=== PATIENT | male | born 1955 | race Caucasian/White ===

== ENCOUNTER 2017-11-28 12:40 | Emergency (ER) | payer SELFPAY ==
[2017-11-28 12:49] VITALS: BP 131/81; BMI 32.3
--- NOTE | 2017-11-28 13:26 | DR.ABDMALE ---
HPI - Time seen Time seen: 13:20 - PCP Primary Care Physician: Vargas DUEÑAS - Complaint Chief Complaint Doctors Comments: Patient presents to the ED with complaint of abdominal distention for the past 2-3 that is associated with anterior lateral pain abdomen. Chief Complaint:: PT C/O HIS BELLY SWELLING AND THAT HE HIS BELCHING, PT C/O THAT HIS ABD PAIN WAS WORSE THIS AM AND THAT WALKING MAKES IT BETTER,, PT C/O SOB WHEN HE WALKS,, Self Treatment fo Chief Complaint: PTS HAS SWELLING TO HIS ABD ,,, AND HE SAYS HE PUT HIS ARMS ACROSS HIS CHEST AND HE FELT SOMETHING POP,, ABOUT 6 MONTHS AGO AND HE HAD HURT SINCE THAN ,, - Mode of arrival Mode of Arrival: Ambulatory - Timing Onset of Chief Complaint: 11/28/17 PMH - PMH Past Medical History: Yes Past Medical History: Hypertension, SVT Past Surgical History: Yes Past Surgical History Comment: KNEE REPLACED, HERNIA, ARTERY FROM HEART, - Family History History of Family Medical Conditions: No - Social History Does patient currently use any type of tobacco product: No Have you used tobacco products in the last 12 months: No Type of Tobacco Use: None Does any household member use tobacco: No Alcohol Use: None Do you use any recreational Drugs:: No Lives With: Family Lives Where: Home - infectious screening In the last 2 months have you had wt loss of >10#?: NO Have you had fever, night sweats or hemotysis?: No Have you traveled outside the country in the last 6 months?: No Isolation: Standard ROS - Review of Systems Eyes: No Symptoms Reported ENTM: No Symptoms Reported Respiratoy: No Symptoms Reported Cardiovascular: No Symptoms Reported Gastrointestinal/Abdominal: No Symptoms Reported, See HPI, Abdominal Pain, Diarrhea. negative: Constipation, Vomiting Genitourinary: No Symptoms Reported Neurological: No Symptoms Reported Musculoskeletal: No Symptoms Reported Integumentary: No Symptoms Reported Hematologic/Lymphatic: No Symptoms Reported Endocrine: No Symptoms Reported Psychiatric: No Symptoms Reported All Other Systems: Reviewed and Negative PE - Vital Signs Vital Signs: Temp Pulse Resp BP Pulse Ox 11/28/17 12:42 97.5 F L 93 H 20 131/81 110 H - General Limitations: No Limitations General Appearance: Alert, In No Apparent Distress - Head Head Exam: Normal Inspection, Atraumatic - Eyes Eye exam: Normal Appearance, PERRL, EOMI - ENT ENT Exam: Normal Exam - Neck Neck Exam: Normal Inspection, Full ROM - Chest Chest Inspection: Normal Inspection - Respiratory Respiratory Exam: Normal Lung Sounds Bilat Respiratory Exam: Bilateral Clear to Auscultation - Cardiovascular Cardiovascular Exam: Regular Rate, Normal Rhythm - Abdominal Exam Abdominal Exam: Distention, Tenderness, Hyperactive Bowel Sounds Abdominal Tenderness: LUQ, Epigastrium - Rectal Rectal Exam: Deferred - Back Back Exam: Normal Inspection - Extremeties Extremities Exam: Normal Inspection, Full ROM - Exam: Male: Deferred - Neurologic Neurological Exam: Alert, Oriented X3, CN II-XII Intact - Psychiatric Psychiatric Exam: Normal Affect - Skin Skin Exam: Warm, Dry Course - Treatment Treatment: CT scanner is down, patients w/u delayed 1.5 hours ROR - Labs Reviewed Result Diagrams: 11/28/17 13:31 11/28/17 13:31 Laboratory: WBC 9.6 X10^3/uL (3.6-10.0) 11/28/17 13:31 RBC 5.50 X10^6/uL (4.7-6.0) 11/28/17 13:31 Hgb 15.6 g/dL (13.5-18.0) 11/28/17 13:31 Hct 45.8 % (42.0-54.0) 11/28/17 13:31 MCV 83.2 fL (80.0-100.0) 11/28/17 13:31 MCH 28.4 pg (27.0-34.0) 11/28/17 13:31 MCHC 34.2 g/dL (33.0-35.0) 11/28/17 13:31 RDW 15.1 % (11.6-16.5) 11/28/17 13:31 Plt Count 265 X10^3/uL (150.0-450.0) 11/28/17 13:31 MPV 8.7 fL (7.4-11.0) 11/28/17 13:31 Neut % 89.3 % (42.0-75.0) H 11/28/17 13:31 Lymph % 5.2 % (21.0-51.0) L 11/28/17 13:31 [place] % 4.4 % (0.0-13.0) 11/28/17 13:31 Eos % 0.3 % (0.9-2.9) L 11/28/17 13:31 Baso % 0.8 % (0.2-1.0) 11/28/17 13:31 Neut # 8.6 x10^3/uL (2.2-4.8) H 11/28/17 13:31 Lymph # 0.5 X10^3/uL (1.3-2.9) L 11/28/17 13:31 [place] # 0.4 x10^3/uL (0.3-0.8) 11/28/17 13:31 Eos # 0.0 x10^3/uL (0.0-0.2) 11/28/17 13:31 Baso # 0.1 X10^3/uL (0.0-0.1) 11/28/17 13:31 Absolute Nucleated RBC 0.0 /100WBC 11/28/17 13:31 Sodium 139 mmol/L (136-145) 11/28/17 13:31 Corrected Sodium 140 mmol/L (136-145) 11/28/17 13:31 Potassium 4.1 mmol/L (3.5-5.1) 11/28/17 13:31 Chloride 104 mmol/L (98-107) 11/28/17 13:31 Carbon Dioxide 26.9 mmol/L (21-32) 11/28/17 13:31 BUN 14 mg/dL (7-18) 11/28/17 13:31 Creatinine 1.02 mg/dL (0.70-1.30) 11/28/17 13:31 Est GFR (MDRD) Af Amer > 60 (>60) 11/28/17 13:31 Est GFR (MDRD) Non-Af > 60 (>60) 11/28/17 13:31 Glucose 127 mg/dL (65-99) H 11/28/17 13:31 Calcium 8.7 mg/dL (8.5-10.1) 11/28/17 13:31 Corrected Calcium TNP 11/28/17 13:31 Total Bilirubin 0.60 mg/dL (0.2-1.0) 11/28/17 13:31 AST 18 Units/L (15-37) 11/28/17 13:31 ALT 32 Units/L (12-78) 11/28/17 13:31 Alkaline Phosphatase 136 Units/L (46-116) H 11/28/17 13:31 C-Reactive Protein 26.80 mg/L (0-3.0) H 11/28/17 13:31 Total Protein 7.4 g/dL (6.4-8.2) 11/28/17 13:31 Albumin 3.8 g/dL (3.4-5.0) 11/28/17 13:31 Globulin 3.6 g/dL (2.5-4.5) 11/28/17 13:31 Albumin/Globulin Ratio 1.1 Ratio (1.1-2.1) 11/28/17 13:31 Specimen Type Clean catch urine 11/28/17 13:53 Urine Color Dark yellow (YELLOW) 11/28/17 13:53 Urine Appearance Clear (CLEAR) 11/28/17 13:53 Urine pH 7.0 (5.0 - 8.0) 11/28/17 13:53 Ur Specific [place] 1.010 (1.000-1.030) 11/28/17 13:53 Urine Protein 2+ (NEGATIVE) 11/28/17 13:53 Urine Glucose (UA) Negative (NEGATIVE) 11/28/17 13:53 Urine Ketones 1+ (NEGATIVE) 11/28/17 13:53 Urine Occult Blood 1+ (NEGATIVE) 11/28/17 13:53 Urine Nitrite Negative (NEGATIVE) 11/28/17 13:53 Urine Bilirubin 1+ (NEGATIVE) 11/28/17 13:53 Urine Urobilinogen 1+ (NORMAL) 11/28/17 13:53 Ur Leukocyte Esterase 1+ (NEGATIVE) 11/28/17 13:53 Urine RBC 0-5 /HPF (NEGATIVE) 11/28/17 13:53 Urine WBC 0-1 /HPF (NEGATIVE) 11/28/17 13:53 Ur Squamous Epith Cells Negative /HPF (NEGATIVE) 11/28/17 13:53 Urine Bacteria Negative /HPF (NEGATIVE) 11/28/17 13:53 Urine Mucus Moderate /HPF (NEGATIVE) 11/28/17 13:53 Ur Culture Indicated? No/not indicated 11/28/17 13:53 H. pylori IgG Antibody Negative (NEGATIVE) 11/28/17 13:31 - XRAY XRAY Interpreted by: Radiologist (CT Abd/Pelv w/:There is an approximately 3.6x1.8cm lesion within the osterior right hepatic lobe demonstrating discontinuous peripheral enhancement, compatible with a hemangioma. Additional scattered fluid attenuation lesions throughout the liver cannot be definitively characterized but are likely benign cysts. The gallbladder, spleen,stomach , duodenum,pancreas,adrenals and kidneys are unremarkable. There are scattered noninflamed colonic diverticula. No marked bowel thickening or dilatation of the lower GI tract is seen. Normal appendix. The urinary bladder, prostate, and rectum are unremarkable. No free fluid or adenopathy identified. Impression Diverticulosis without acute divverticlitis. Right hepatic hemangioma, probable scattered liver cysts.) - Diagnosis Discharge Problem: Hepatic hemangioma Diverticulosis Qualifiers: Diverticulosis site: diverticulosis of large intestine Diverticulosis bleeding : diverticulosis without bleeding Qualified Code(s): K57.30 - Diverticulosis of large intestine without perforation or abscess without bleeding - Discharge Plan Condition: Stable - Follow ups/Referrals Follow ups/Referrals: BHAVESH YORK [Primary Care Provider] - 3 days - Instructions
[2017-11-28 13:41] LABS: BASOPHILS # (AUTO) 0.1 X10^3/uL (0.0-0.1); BASOPHILS % (AUTO) 0.8 % (0.2-1.0); EOSINOPHILS % (AUTO) 0.3 % (0.9-2.9); HEMATOCRIT 45.8 % (42.0-54.0); HEMOGLOBIN 15.6 g/dL (13.5-18.0); LYMPHOCYTES # (AUTO) 0.5 X10^3/uL (1.3-2.9); LYMPHOCYTES % (AUTO) 5.2 % (21.0-51.0); MEAN CORPUSCULAR HEMOGLOBIN 28.4 pg (27.0-34.0); MEAN CORPUSCULAR HGB CONC 34.2 g/dL (33.0-35.0); MEAN CORPUSCULAR VOLUME 83.2 fL (80.0-100.0); MEAN PLATELET VOLUME 8.7 fL (7.4-11.0); MONOCYTES # (AUTO) 0.4 x10^3/uL (0.3-0.8); MONOCYTES % (AUTO) 4.4 % (0.0-13.0); NEUTROPHILS # (AUTO) 8.6 x10^3/uL (2.2-4.8); NEUTROPHILS % (AUTO) 89.3 % (42.0-75.0); PLATELET COUNT 265 X10^3/uL (150.0-450.0); RED CELL DISTRIBUTION WIDTH 15.1 % (11.6-16.5); WHITE BLOOD COUNT 9.6 X10^3/uL (3.6-10.0)
[2017-11-28 13:56] LABS: ALANINE AMINOTRANSFERASE 32 Units/L (12-78); ALBUMIN 3.8 g/dL (3.4-5.0); ALKALINE PHOSPHATASE 136 Units/L (46-116); ASPARTATE AMINO TRANSFERASE 18 Units/L (15-37); BLOOD UREA NITROGEN 14 mg/dL (7-18); CALCIUM 8.7 mg/dL (8.5-10.1); CARBON DIOXIDE 26.9 mmol/L (21-32); CHLORIDE 104 mmol/L (98-107); COR NA(FOR HYPERGLY) 140 mmol/L (136-145); CREATININE 1.02 mg/dL (0.70-1.30); SODIUM 139 mmol/L (136-145); TOTAL PROTEIN 7.4 g/dL (6.4-8.2); eGFR BLACK RACES > 60 (>60); eGFR NON BLACK RACES > 60 (>60)
[2017-11-28 14:03] LABS: BILIRUBIN,URINE 1+ (NEGATIVE); BLOOD/HEMOGLOBIN,URINE 1+ (NEGATIVE); GLUCOSE, URINE NEGATIVE (NEGATIVE); KETONES,URINE 1+ (NEGATIVE); LEUKOCYTE ESTERASE ,URINE 1+ (NEGATIVE); NITRITES,URINE NEGATIVE (NEGATIVE); PROTEIN,URINE 2+ (NEGATIVE); UROBILINOGEN,URINE 1+ (NORMAL)
[2017-11-28 14:06] LABS: APPEARANCE,URINE CLEAR (CLEAR); COLOR,URINE DARK YELLOW (YELLOW)
[2017-11-28 14:10] LABS: RBC,URINE 0-5 /HPF (NEGATIVE)
[2017-11-28 14:11] LABS: BACTERIA,URINE NEGATIVE /HPF (NEGATIVE); MUCUS,URINE MODERATE /HPF (NEGATIVE); SQUAMOUS EPITHELIAL CELL,UR NEGATIVE /HPF (NEGATIVE)
[2017-11-28] MEDS ORDERED: NS 500 ML IV 500 ML IV ONE (15:40)
--- NOTE | 2017-11-28 16:19 | CT ---
CT abdomen and pelvis with contrast Indication: Left upper abdominal distention and pain Comparison: None Technique: CT images of the abdomen and pelvis were obtained with IV contrast. No oral contrast was g iven. Automatic exposure control was utilized. Findings: The lung bases are grossly clear. No acute skeletal abnormality is identified. There is an approximately 3.6 x 1.8 cm lesion within the posterior right hepatic lobe demonstrating d iscontinuous peripheral enhancement (image 13, series 4), compatible with a hemangioma. Additional sc attered fluid attenuation lesions throughout the liver cannot be definitively characterized, but are likely benign cysts. The gallbladder, spleen, stomach, duodenum, pancreas, adrenals, and kidneys are unremarkable. There are scattered noninflamed colonic diverticula. No marked bowel thickening or dila tation of the lower GI tract is seen. Normal appendix. The urinary bladder, prostate, and rectum are unremarkable. No free fluid or adenopathy identified. Impression: 1. No acute process to explain patient's symptoms. 2. Diverticulosis without acute diverticulitis. 3. Right hepatic hemangioma, probable scattered liver cysts. Reported By:
== END 2017-11-28 16:35 | disposition home or self-care (01) ==
LOC: ER 12:53
DX: D18.09 Hemangioma of other sites (principal); K57.30 Diverticulosis of large intestine without perforation or abscess without bleeding
CPT/HCPCS: 36415; 74177; 80053; 81001; 85025; 86140; 86677; 96365; 99282; 99283; A4222